=== PATIENT | male | born 1945 | race Caucasian/White ===

== ENCOUNTER 2017-04-23 08:27 | Observation (INO) | payer MEDICARE ==
[2017-04-23] MEDS ORDERED: Diltiazem IV* 5 MG/ML 5 ML VIAL (for loading dose/IV Push) (25 MG) IV PUSH ONE (08:38)
[2017-04-23] MEDS ORDERED: NS 0.9% 1000 ML* 1,000 ML IV ONE ×2 (08:38→09:45)
[2017-04-23 08:57] LABS: ABS Basophils 0.1 10^3/ul (0-0.2); ABS Eosinophils 0 10^3/ul (0-0.6); ABS Lymphocytes 1.6 10^3/ul (1.0-4.8); ABS Monocytes 0.5 10^3/ul (0-0.8); ABS Neutrophils 6.5 10^3/ul (1.5-7.7); ABS Nucleated RBC 0 10^3/ul; Eosinophil % 0.5 % (0-6); Hematocrit 48 % (42-52); Hemoglobin 16.1 g/dl (14.0-18.0); Lymphocyte % 18.5 % (25-47); Mean Corpuscular HGB Conc 34 g/dl (31-36); Mean Corpuscular Hemoglobin 30 pg (27-31); Mean Corpuscular Volume 88 fL (80-94); Mean Platelet Volume 9 um3 (7.4-10.4); Nucleated Red Blood Cells % 0; Platelet Count 244 10^3/ul (150-450); Red Blood Count 5.38 10^6/ul (4.0-5.4); Red Cell Distribution Width 13 % (10.5-15); White Blood Count 8.7 10^3/ul (3.5-10.8)
--- NOTE | 2017-04-23 09:04 | RAD ---
Indication: Arrhythmia. Atrial fibrillation. Comparison: No relevant prior exams available on the [facility] PACS for comparison. Technique: Upright AP 0850 hours Report: Upper normal heart size accounting for portable AP technique. Unremarkable central pulmonary vasculature and mediastinal contours. Minimal prominence of the interstitial markings. Negative for pleural effusion or pneumothorax. IMPRESSION: No acute cardiopulmonary process evident.
[2017-04-23 09:09] LABS: EGFR Non-African American 68.3 (>60)
[2017-04-23] MEDS ORDERED: Potassium Chlor TAB* 20 MEQ TAB.ER PO ONE (09:19)
[2017-04-23 09:22] LABS: INR 0.87 (0.77-1.02)
[2017-04-23] MEDS ORDERED: Diltiazem DRIP* 100 MG/100 ML ADDV.BAG IVPB ONE (10:02)
[2017-04-23] MEDS ORDERED: Metoprolol Tartrate IV* 1 MG/ML 5 ML VIAL IV ONE ×2 (11:15→11:40)
[2017-04-23] MEDS ORDERED: Ondansetron INJ* 2 MG/ML VIAL IV PRN (11:16)
[2017-04-23] MEDS ORDERED: NS 0.9% 1000 ML* 1,000 ML IV SCH (11:30)
[2017-04-23] MEDS ORDERED: Enoxaparin(*) 80 MG/0.8 ML SYR SUBCUT SCH (12:00)
[2017-04-23] MEDS ORDERED: Diltiazem IV VIAL* 125 MG in D5W 100 ML BAG* 100 ML IVPB ONE (12:00)
[2017-04-23 12:43] VITALS: BP 104/70
[2017-04-23] MEDS ORDERED: Midazolam* 1 MG/ML 10 ML VIAL (10 MG) ONE (15:20)
[2017-04-23] MEDS ORDERED: Naloxone* 0.4 MG/ML 1 ML VIAL ONE (15:20)
[2017-04-23] MEDS ORDERED: fentaNYL* 50 MCG/ML 2 ML VIAL (100 MCG VIAL) ONE (15:20)
[2017-04-23] MEDS ORDERED: Flumazenil* 0.1 MG/ML 5 ML MDV ONE (15:20)
--- NOTE | 2017-04-23 17:23 | ED ---
Teddy Maria Angela, scribed for Lon Iqbal MD on 04/23/17 at 0852 . Palpitations / Dysrhythmia - HPI Summary HPI Summary: This pt is a 71 y/o male presenting to [facility] s/p syncopal episode this morning. Pt reports he was getting out of bed when he fainted. Pt notes he was in atrial fibrillation. He states he has atrial fibrillation 2-3 times a year and usually converts back to sinus within 4 hours without cardioversion. Pt is followed up by Dr. Hager. He has echocardiograms routinely done (every 3 days), his last one was 5 days ago (on 04/18/17). Pt notes his last echo looked ok. He reports currently feeling dizzy, lightheaded, and mildly SOB. Pt denies headache , chest pain. Pt is currently on baby ASA. - History of Current Complaint Chief Complaint: EDSyncope Time Seen by Provider: 04/23/17 08:37 Hx Obtained From: Patient Onset/Duration: Lasting Hours, Still Present Severity Currently: Moderate Character: Irregular Aggravating: Nothing Alleviating: Nothing Associated Signs & Symptoms: Lightheadedness, Dizzy, Shortness of Breath - mildly - Allergy/Home Medications Allergies/Adverse Reactions: Allergies Allergy/AdvReac Type Severity Reaction Status Date / Time No Known Allergies Allergy Verified 04/23/17 09:03 Home Medications: Home Medications Ascorbic Acid TAB* [Vitamin C TAB*] 500 mg PO DAILY 04/23/17 [History Confirmed 04/23/17] Aspirin EC Low Dose* [Ecotrin EC Low Dose 81 MG*] 81 mg PO DAILY 04/23/17 [ History Confirmed 04/23/17] Metoprolol Succinate XL TAB* [Toprol XL TAB*] 50 mg PO DAILY 04/23/17 [History Confirmed 04/23/17] Multivitamins/Minerals TAB* [Theragran/minerals TAB*] 1 tab PO DAILY 04/23/17 [ History Confirmed 04/23/17] [place]-3 Fatty Acids (Nf) [Fish Oil (NF)] 1,000 mg PO DAILY 04/23/17 [History Confirmed 04/23/17] PMH/Surg Hx/FS Hx/Imm Hx Endocrine/Hematology History: Denies: Hx Diabetes Cardiovascular History: Reports: Hx Atrial Fibrillation Infectious Disease History: No Infectious Disease History: Denies: Traveled Outside the [place] in Last 30 Days - Family History Known Family History: Positive: Other - Colon Ca. Father: malignant polyp. - Social History Alcohol Use: None Substance Use Type: Reports: None Smoking Status (MU): Former Smoker Review of Systems Negative: Fever, Chills Positive: Palpitations. Negative: Chest Pain Positive: Shortness Of Breath Neurological: Other - lightheadedness, dizziness Negative: Headache All Other Systems Reviewed And Are Negative: Yes Physical Exam - Summary Physical Exam Summary: VITAL SIGNS: Reviewed. GENERAL: Patient is a pale and ill looking male who is lying comfortable in the stretcher. Patient is not in any acute respiratory distress. HEAD AND FACE: No signs of trauma. No ecchymosis, hematomas or skull depressions. No sinus tenderness. EYES: PERRLA, EOMI x 2, No injected conjunctiva, no nystagmus. EARS: Hearing grossly intact. Ear canals and tympanic membranes are within normal limits. MOUTH: Oropharynx within normal limits. NECK: Supple, trachea is midline, no adenopathy, no JVD, no carotid bruit, no c- spine tenderness, neck with full ROM. CHEST: Symmetric, no tenderness at palpation LUNGS: Clear to auscultation bilaterally. No wheezing or crackles. CVS: Irregular rate and rhythm, that ranges from 130-150 bpm. S1 and S2 present , no murmurs or gallops appreciated. ABDOMEN: Soft, non-tender. No signs of distention. No rebound no guarding, and no masses palpated. Bowel sounds are normal. EXTREMITIES: FROM in all major joints, no edema, no cyanosis or clubbing. NEURO: Alert and oriented x 3. No acute neurological deficits. Speech is normal and follows commands. SKIN: Dry and warm Triage Information Reviewed: Yes Vital Signs On Initial Exam: Initial Vitals Temp Pulse Resp BP Pulse Ox 97 F 142 16 126/79 99 04/23/17 08:34 04/23/17 08:34 04/23/17 08:34 04/23/17 08:34 04/23/17 08:34 Vital Signs Reviewed: Yes Diagnostics - Vital Signs Vital Signs Temp Pulse Resp BP Pulse Ox 04/23/17 08:34 97 F 142 16 126/79 99 - Laboratory Lab Results: Lab Results 01/22/18 01/22/18 01/22/18 Range/Units 08:42 08:42 08:42 WBC (3.5-10.8) 10^3/ul RBC (4.0-5.4) 10^6/ul Hgb (14.0-18.0) g/dl Hct (42-52) % MCV (80-94) fL MCH (27-31) pg MCHC (31-36) g/dl RDW (10.5-15) % Plt Count (150-450) 10^3/ul MPV (7.4-10.4) um3 Neut % (Auto) (38-83) % Lymph % (Auto) (25-47) % Barton % (Auto) (1-9) % Eos % (Auto) (0-6) % Baso % (Auto) (0-2) % Absolute Neuts (auto) (1.5-7.7) 10^3/ul Absolute Lymphs (auto) (1.0-4.8) 10^3/ul Absolute Monos (auto) (0-0.8) 10^3/ul Absolute Eos (auto) (0-0.6) 10^3/ul Absolute Basos (auto) (0-0.2) 10^3/ul Absolute Nucleated RBC 10^3/ul Nucleated RBC % INR (Anticoag Therapy) 0.87 (0.77-1.02) APTT 31.2 (26.0-36.3) seconds Sodium 138 (133-145) mmol/L Potassium 3.4 L (3.5-5.0) mmol/L Chloride 102 (101-111) mmol/L Carbon Dioxide 25 (22-32) mmol/L Anion Gap 11 (2-11) mmol/L BUN 22 (6-24) mg/dL Creatinine 1.07 (0.67-1.17) mg/dL Est GFR ( Amer) 87.9 (>60) Est GFR (Non-Af Amer) 68.3 (>60) BUN/Creatinine Ratio 20.6 H (8-20) Glucose 145 H (70-100) mg/dL Calcium 9.2 (8.6-10.3) mg/dL Magnesium 2.0 (1.9-2.7) mg/dL Total Bilirubin 0.90 (0.2-1.0) mg/dL AST 19 (13-39) U/L ALT 17 (7-52) U/L Alkaline Phosphatase 73 (34-104) U/L Total Creatine Kinase 65 (10-223) U/L CK-MB (CK-2) 1.9 (0.6-6.3) ng/mL Troponin I 0.00 (<0.04) ng/mL B-Natriuretic Peptide 28 ( - 100) pg/mL Total Protein 6.7 (6.4-8.9) g/dL Albumin 4.3 (3.2-5.2) g/dL Globulin 2.4 (2-4) g/dL Albumin/Globulin Ratio 1.8 (1-3) TSH 1.15 (0.34-5.60) mcIU/mL Thyroxine (T4) 9.60 (6.09-12.23) mcg/mL 04/23/17 Range/Units 08:42 WBC 8.7 (3.5-10.8) 10^3/ul RBC 5.38 (4.0-5.4) 10^6/ul Hgb 16.1 (14.0-18.0) g/dl Hct 48 (42-52) % MCV 88 (80-94) fL MCH 30 (27-31) pg MCHC 34 (31-36) g/dl RDW 13 (10.5-15) % Plt Count 244 (150-450) 10^3/ul MPV 9 (7.4-10.4) um3 Neut % (Auto) 74.4 (38-83) % Lymph % (Auto) 18.5 L (25-47) % Barton % (Auto) 5.8 (1-9) % Eos % (Auto) 0.5 (0-6) % Baso % (Auto) 0.8 (0-2) % Absolute Neuts (auto) 6.5 (1.5-7.7) 10^3/ul Absolute Lymphs (auto) 1.6 (1.0-4.8) 10^3/ul Absolute Monos (auto) 0.5 (0-0.8) 10^3/ul Absolute Eos (auto) 0 (0-0.6) 10^3/ul Absolute Basos (auto) 0.1 (0-0.2) 10^3/ul Absolute Nucleated RBC 0 10^3/ul Nucleated RBC % 0 INR (Anticoag Therapy) (0.77-1.02) APTT (26.0-36.3) seconds Sodium (133-145) mmol/L Potassium (3.5-5.0) mmol/L Chloride (101-111) mmol/L Carbon Dioxide (22-32) mmol/L Anion Gap (2-11) mmol/L BUN (6-24) mg/dL Creatinine (0.67-1.17) mg/dL Est GFR ( Amer) (>60) Est GFR (Non-Af Amer) (>60) BUN/Creatinine Ratio (8-20) Glucose (70-100) mg/dL Calcium (8.6-10.3) mg/dL Magnesium (1.9-2.7) mg/dL Total Bilirubin (0.2-1.0) mg/dL AST (13-39) U/L ALT (7-52) U/L Alkaline Phosphatase (34-104) U/L Total Creatine Kinase (10-223) U/L CK-MB (CK-2) (0.6-6.3) ng/mL Troponin I (<0.04) ng/mL B-Natriuretic Peptide ( - 100) pg/mL Total Protein (6.4-8.9) g/dL Albumin (3.2-5.2) g/dL Globulin (2-4) g/dL Albumin/Globulin Ratio (1-3) TSH (0.34-5.60) mcIU/mL Thyroxine (T4) (6.09-12.23) mcg/mL Result Diagrams: 04/23/17 08:42 04/23/17 08:42 Lab Statement: Any lab studies that have been ordered have been reviewed, and results considered in the medical decision making process. - Radiology Chest XR Xray Interpretation: No Acute Changes - IMPRESSION: No acute cardiopulmonary process evident. Dr. Iqbal has reviewed this radiology report. Radiology Interpretation Completed By: Radiologist - EKG 9004 Cardiac Rate: Tachycardia EKG Rhythm: Atrial Fibrillation - at 146 bpm EKG Interpretation: ST depression in leads II, aVF, V4-V6. Course/Dx - Course Course Of Treatment: This pt is a 71 y/o male presenting to [facility] s/p syncopal episode this morning. Pt reports he was getting out of bed when he fainted. Pt notes he was in atrial fibrillation. He states he has atrial fibrillation 2-3 times a year and usually converts back to sinus within 4 hours without cardioversion. Pt is followed up by Dr. Hager. He has echocardiograms routinely done (every 3 days), his last one was 5 days ago (on 04/18/17). Pt notes his last echo looked ok. He reports currently feeling dizzy, lightheaded, and mildly SOB. Pt denies headache, chest pain. Pt is currently on baby ASA. Test results without any acute abnormalities except for potassium of 3.4. EKG shows the pt has atrial fibrillation with RVR, for which the pt was placed on cardizem bolus and drip. The heart rate is controlled between 90 and 100. At this point, I discussed the pts case with Dr. Meyer, hospitalist, who accepted the pt for admission. Pt is hemodynamically stable, alert and oriented x3. - Diagnoses Differential Diagnosis/HQI/PQRI: Positive: Paroxymal SVT, V-Tach Provider Diagnoses: Atrial fibrillation with RVR - Physician Notifications Discussed Care Of Patient With: Federico Meyer Time Discussed With Above Provider: 10:05 Instructed by Provider To: Other - I discussed pt care with Dr. Meyer, hospitalist, who has agreed to admit the pt. - Critical Care Time Critical Care Time: 75-104 min Discharge - Discharge Plan Condition: Stable Disposition: ADMITTED TO [facility] The documentation as recorded by the Teddy del toro Angela accurately reflects the service I personally performed and the decisions made by me, Lon Iqbal MD.
--- NOTE | 2017-04-23 20:13 | HP ---
CC: Dr. Early * HISTORY AND PHYSICAL: DATE OF ADMISSION: 04/23/17 PRIMARY CARE PROVIDER: Dr. Early. PROJECT INTERNSHIP: Dr. Hager. CHIEF COMPLAINT: Syncope. HISTORY OF PRESENT ILLNESS: Mr. Toribio is a 71-year-old male who has a history of neurocardiogenic syncope, atrial fibrillation, and obstructive sleep apnea who presents to the emergency room after having syncopal episode on the morning of admission. The patient states that he was getting up from bed. He states he then passed out. When he came to, he felt very wiped out. He felt diaphoretic and then he went into atrial fibrillation. The patient states that this is a common occurrence for him happening 2 to 3 times a year. The patient did relate to me that he saw Dr. Hager just this past Sunday to review an echocardiogram that was done on the Sunday prior. Reportedly, this was all normal. The patient states that he feels exactly the same as he always does after passing out, though perhaps symptoms are minimally worse. The patient did vomit 3 to 4 times this morning. He denies any recent illnesses. He denies any recent cold symptoms. He has no chest pain. He does continue to feel lightheaded. He states he feels like he needs to have a large bowel movement, which is very common after he has a passing out episode. The patient , however, does not want to get up at this point due to feeling lightheaded. The patient typically takes metoprolol XL on a daily basis. However, he has not had his metoprolol yet today. Additionally, he has not taken his aspirin today. PAST MEDICAL HISTORY: 1. Atrial fibrillation - paroxysmal. 2. Obstructive sleep apnea for which he uses a sleep shirt. 3. Neurocardiogenic syncope. PAST SURGICAL HISTORY: Right thumb surgery. MEDICATIONS: 1. [place]-3 fatty acid 1000 mg p.o. daily. 2. Multivitamin 1 tab p.o. daily. 3. Ascorbic acid 500 mg p.o. daily. 4. Metoprolol XL 50 mg p.o. daily. 5. Aspirin 81 mg p.o. daily. ALLERGIES: No known drug allergies. FAMILY HISTORY: Mom is living. She is 93 and healthy. Dad in his 80s. It sounds he had peripheral arterial disease. SOCIAL HISTORY: The patient is a former smoker stating he quit when he was a child. He denies any alcohol use. 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 He is not . He has 1 daughter, her name is Kelli and she is his healthcare proxy. REVIEW OF SYSTEMS: A complete 11-system review of systems is obtained. Pertinent positives and negatives are as per HPI and in addition, the patient does complain of crampy abdominal pain, stating he feels as if he needs to have a bowel movement and he has had some mild nausea. PHYSICAL EXAMINATION GENERAL: The patient is a well-developed elderly male, lying in the stretcher with a cloth over his face, looking mildly ill, but in no acute distress. VITAL SIGNS: Blood pressure 98/62, pulse 127, respirations 14, temp 97, O2 sat 96% on room air. HEENT: Pupils are equal, they are round. Extraocular muscles are intact. Oropharynx is clear. Oral mucosa is moist. There is no submandibular, cervical , or supraclavicular adenopathy. Thyroid is not enlarged. No thyroid nodules are noted. PULMONARY: Lungs are clear to auscultation bilaterally. CARDIAC: Normal S1 and S2. Heart rate is irregularly irregular and tachycardic. There is no lower extremity edema. ABDOMEN: Bowel sounds are present. Abdomen is soft, nontender, nondistended. MUSCULOSKELETAL: There is no cyanosis or clubbing of the digits. There is full active range of motion of all 4 extremities. SKIN: Warm and dry. There are no rashes. NEURO: Cranial nerves II through XII are grossly intact. Sensation is intact to light touch throughout. Strength is 5/5 and symmetric to both upper and lower extremities bilaterally. PSYCH: The patient is alert. He is oriented x3. Affect appears appropriate. LABORATORY DATA/DIAGNOSTIC STUDIES: WBC 8.7, hemoglobin 16.1, hematocrit 48, platelets 244,000. INR 0.87. Sodium 138, potassium 3.4, chloride 102, CO2 of 25, BUN 22, creatinine 1.07, glucose 145. Calcium 9.2. Magnesium 2.0. Bilirubin 0.9, AST 19, ALT 17, alk phos 73. CPK 65, CK-MB 1.9. Troponin 0. BNP 28. Albumin 4.3. TSH 1.15. EKG reveals atrial fibrillation with rapid ventricular response. Chest x-ray reveals no acute cardiopulmonary process. ASSESSMENT AND PLAN: Mr. Toribio is a 71-year-old male who has a history of paroxysmal atrial fibrillation, neurocardiogenic syncope, and obstructive sleep apnea who presents to the emergency room with complaints of syncopal episode and atrial fibrillation. 1. Syncope. The patient states that this will happen intermittently to him where he gets up in the morning and has a vagal response and passes out. The patient states had he not gone into the atrial fibrillation, he likely would not have presented to the emergency room as he felt almost identical to how he usually feels. He recently had an echocardiogram done with Dr. Hager that revealed normal ejection fraction and no significant valvular abnormalities. A copy of this echocardiogram is in the paper chart. I do not believe he needs another echocardiogram; however, he will be monitored on telemetry. 2. Atrial fibrillation. The patient states that frequently after he passes out , he will go into atrial fibrillation. Typically, he breaks after 3 to 4 hours of being in atrial fibrillation. The patient believes he passed out at approximately 7 a.m. and shortly thereafter went into atrial fibrillation. His heart rate has been in the 130s to 140s in the emergency room; however, he did not have his metoprolol today like he usually does. As the patient's blood pressure is on the soft side after receiving 15 mg of diltiazem in the emergency room, I will try 5 mg of IV metoprolol now to see if this slows his heart rate down or breaks him into sinus rhythm. If the patient fails to improve over the course of the next 30 to 60 minutes, I will consult Cardiology for possible cardioversion. The patient will be started on Lovenox therapeutically dosed while awaiting a decision about cardioversion. Additionally, the patient's MARGO-VASc score is 1 for his age. The patient for now will be continued on aspirin. Dr. Hager has recommended the patient going on a full dose anticoagulant; however, he is yet to decide this. We can continue to have this discussion here in the hospital. The patient did receive 40 mEq of potassium in the emergency room for his mild hypokalemia. 3. Obstructive sleep apnea. The patient utilizes a sleep shirt. I do see where he has been referred to Dr. Campo for further evaluation of his sleep apnea. I will perform a nocturnal desaturation study to evaluate for nocturnal hypoxia, which perhaps is leading to the atrial fibrillation. 4. DVT prophylaxis. According to the Adult Thrombosis Prophylaxis Risk Factor Assessment Guide, the patient had a total risk factor score of 2, making him moderate risk. He is going to be on full dose Lovenox for his atrial fibrillation and this will act as his DVT prophylaxis. 5. Code status is full. Again, the patient indicates that his daughter, Kelli, is his healthcare proxy. TIME SPENT: Sixty five minutes were spent admitting this patient. [id number]/[facility] #: [id number] LEANDRA
--- NOTE | 2017-04-23 23:07 | CONS ---
CC: Dr. Hager * CARDIOLOGY CONSULTATION REPORT: DATE OF CONSULTATION: 04/23/17 INDICATIONS FOR CONSULTATION: Atrial flutter. HISTORY OF PRESENT ILLNESS: The patient is a 71-year-old gentleman with a history of paroxysmal atrial fibrillation/atrial flutter. The patient had just seen Dr. Hager last Sunday, April 20, at that time he was having his typical brief episodes of atrial fibrillation. He also has a history of neurocardiogenic syncope. The patient states he was fine over the weekend. No problems yesterday, doing all usual activities yesterday. This morning he got up and immediately he felt unwell. He said these are his usual symptoms before he gets his neuro- cardiogenic syncope. The patient went to sit down and did have a brief passing out episode. When he awoke he noted that he was in atrial fibrillation. The patient states that it was a more vigorous episode of atrial fibrillation, he felt slightly nauseous with it and felt extremely weak. At that time he called his neighbor who came over and brought him to the emergency room. On arrival to the emergency room, he was in atrial flutter with rapid ventricular response and mild hypotension. PAST MEDICAL HISTORY: Significant for paroxysmal atrial fibrillation. PAST SURGICAL HISTORY: None. ALLERGIES: No known drug allergies. OUTPATIENT MEDICATIONS: 1. Fish oil tablets 1000 mg a day. 2. Multivitamin a day. 3. Vitamin C 500 mg a day. 4. Metoprolol succinate 50 mg once a day. 5. Aspirin 81 mg a day. 6. He is not on anticoagulation because of his low MARGO score. SOCIAL HISTORY: He lives by himself. He denies any tobacco or alcohol use. The patient does work. He currently does not have a primary care physician. He does not get any regular exercise. PHYSICAL EXAMINATION: On physical exam, height is 5 feet 8 inches, weight is 169 pounds. Temperature 98.2, heart rate 132, blood pressure 99/60, respiratory rate 15, oxygen saturation 98% on room air. Sclerae anicteric. Oropharynx pink. No erythema. Carotids are 2+ without bruits. JVD is normal. Thyroid is normal. Cardiac Exam: S1, S2 without any murmurs, rubs or gallops. Lungs: Clear to auscultation bilaterally. There is no dullness to percussion. Abdomen: Soft, nontender, nondistended with normoactive bowel sounds. Extremities: Show no edema. He has 2+ pulses through-out. The patient is awake and alert, and oriented. He moves all 4 extremities equally. DIAGNOSTIC DATA/LABORATORY DATA: CBC within normal limits. Chemistry is within normal limits. First trip of troponins are negative at 0 and 0.01. TSH is normal. EKG demonstrates atrial fibrillation with a rapid ventricular response. IMPRESSION: This is a 71-year-old gentleman with a history of paroxysmal atrial fibrillation, atrial flutter. He was admitted to the hospital with atrial flutter. For now my recommendation is to have the patient undergo cardioversion, the risks and benefits of this were described in great detail and the patient is willing to proceed. The patient does not need a transesophageal echocardiogram as his symptoms started this morning. The patient will follow up with Dr. Hager as an outpatient for further treatment of his atrial fibrillation, atrial flutter. [id number]/[facility] #: [id number] MTDD
--- NOTE | 2017-04-24 01:53 | CARD ---
CARDIOVERSION NOTE: DATE OF PROCEDURE: 04/23/17 - ROOM #441 PROCEDURE: Cardioversion. INDICATION: Atrial flutter. The patient is a 71-year-old gentleman with a history of paroxysmal atrial fibrillation and flutter, who is admitted to the hospital with aflutter. The patient's symptoms started this morning. He was feeling poorly. In the atrial fibrillation, his blood pressure was slightly low. Recommendation was to undergo cardioversion. The patient did not need a transesophageal echocardiogram as he has been in atrial fibrillation for less than 24 hours. DESCRIPTION OF PROCEDURE: The patient was in a fasting state. Informed consent had been obtained prior to the procedure. All labs were reviewed. The patient was given 4 mg of Versed and 50 mcg of fentanyl for conscious sedation. The patient was cardioverted with a 100 joules of synchronized biphasic energy. The patient converted from atrial flutter to normal sinus rhythm. The patient tolerated the procedure well with no complications. The patient will follow up with Dr. Hager in the near future. The patient will be discharged on metoprolol succinate 50 mg a day and Eliquis 5 mg b.i.d. [id number]/[facility] #: [id number] [facility]
[2017-04-24] MEDS ORDERED: Multivitamins/Minerals TAB PO SCH (09:00)
[2017-04-24] MEDS ORDERED: Aspirin EC Low Dose* 81 MG TAB.EC PO SCH (09:00)
[2017-04-24] MEDS ORDERED: Metoprolol Succinate XL TAB* 50 MG PO SCH (09:00)
--- NOTE | 2017-04-24 09:42 | DS ---
CC: Dr. Hager; Dr. Cain DATE OF ADMISSION: 04/23/2017. DATE OF DISCHARGE: 04/23/2017. PRIMARY CARE PHYSICIAN: Dr. Cain. HOSPITAL COURSE: Mr. Toribio is a 71-year-old male whom I admitted under observation status earlier o n 04/23/2017 after he sustained a syncopal episode at home and subsequently went into atrial fibrilla tion. This is unfortunately a common occurrence for the patient. He states that the syncopal episod e and how he felt afterward are very similar to how he has always felt. The atrial fibrillation pers isted and he felt lousy with that and therefore presented to the emergency room for evaluation. The patient received a Diltiazem push as well as Metoprolol IV times two doses, but because of persistent hypotension the decision was made to obtain a Cardiology consultation. The patient was seen by Dr. Alex who cardioverted the patient successfully to normal sinus rhythm. The patient at this point is felt to be stable for discharge home per Dr. Alex. He did have a bump in his troponin up to 0.04 w hich I suspect is related to persistent atrial fibrillation. The patient has been started on Eliquis 5 mg p.o. twice daily and will continue on this. He is to follow-up with Dr. Hager next week. Th e patient will hold his aspirin while on the Eliquis. He will also continue on his Metoprolol XL 50 mg daily. The patient is now stable and ready for discharge home. FOLLOW-UP CONCERNS: The patient is being discharged home today, 04/23/2017. The patient is to follow-up with Dr. Cain in the next four to [address] Hager next w rampart. ACTIVITY LEVEL: As tolerated. DIET: Regular. CONDITION ON DISCHARGE: Stable. Twenty minutes were spent discharging this patient. [id number]/[facility] #: [id number]
== END 2017-04-23 18:58 | disposition home or self-care (01) ==
LOC: ED 08:27 → MEDTELE 11:13
PROVIDERS: ADMIT Hospitalist; ATTEND Hospitalist
DX: I48.91 Unspecified atrial fibrillation (principal); R55 Syncope and collapse; R42 Dizziness and giddiness; Z87.891 Personal history of nicotine dependence; R06.02 Shortness of breath; R00.2 Palpitations
CPT/HCPCS: 36415; 71045; 80053; 82550; 82553; 83735; 83880; 84436; 84443; 84484; 85025; 85610; 85730; 92960; 93005; 96374; 96375; 99156; 99284; A9270-GY; G0378; J1650; J2250; J2310; J3010; J3490

== ENCOUNTER 2018-04-25 06:47 | Observation (INO) | payer MEDICARE ==
[2018-04-25] MEDS ORDERED: ceFAZolin 1 GM* X ONE DOSE (AddVan) IVPB ×2 (08:00)
[2018-04-25] MEDS ORDERED: Lidocaine 1% INJ* 10 MG/ML 30 ML SDV ONE (08:33)
[2018-04-25] MEDS ORDERED: fentaNYL* 50 MCG/ML 2 ML VIAL (100 MCG VIAL) ONE (08:33)
[2018-04-25] MEDS ORDERED: Midazolam* 1 MG/ML 5 ML VIAL (5 MG) ONE ×2 (08:34→09:22)
[2018-04-25] MEDS ORDERED: Naloxone* 0.4 MG/ML 1 ML VIAL ONE (08:34)
[2018-04-25] MEDS ORDERED: Iohexol 300* (CONTRAST) 10 ML SDV ONE (08:35)
[2018-04-25] MEDS ORDERED: Flumazenil* 0.1 MG/ML 5 ML MDV ONE (08:35)
[2018-04-25 08:40] LABS: Hematocrit 46 % (42-52); Hemoglobin 15.4 g/dl (14.0-18.0); Mean Corpuscular HGB Conc 34 g/dl (31-36); Mean Corpuscular Hemoglobin 30 pg (27-31); Mean Corpuscular Volume 89 fL (80-94); Mean Platelet Volume 9.2 fL (7.4-10.4); Platelet Count 209 10^3/ul (150-450); Red Blood Count 5.17 10^6/ul (4.00-5.40); Red Cell Distribution Width 13 % (10.5-15); White Blood Count 5.5 10^3/ul (3.5-10.8)
[2018-04-25 08:51] LABS: Activated Partial Thrombo Time 32.4 seconds (26.0-36.3); INR 0.92 (0.77-1.02)
[2018-04-25 08:56] LABS: BUN/Creatinine Ratio 16.7 (8-20); Calcium 9.1 mg/dL (8.6-10.3); EGFR African American 87.1 (>60); Potassium 4.1 mmol/L (3.5-5.0)
[2018-04-25] MEDS ORDERED: Acetaminophen TAB* 325 MG PO PRN (10:17)
[2018-04-25] MEDS: ceFAZolin 1 GM VIAL(*) 1 GM in NS 0.9% 50 ML* 50 ML IVPB SCH (17:36)
[2018-04-26] MEDS: ceFAZolin 1 GM VIAL(*) 1 GM in NS 0.9% 50 ML* 50 ML IVPB SCH ×2 (00:55→09:02)
[2018-04-26] MEDS ORDERED: Metoprolol Succinate XL TAB* 50 MG PO SCH (09:00)
[2018-04-26 09:21] VITALS: BP 124/74
--- NOTE | 2018-04-27 12:59 | OP ---
DATE OF OPERATION: 04/25/18 - ROOM #452 DATE OF : 47 SURGEON: Lorri Hager MD. ANESTHESIA: MAC. PRE-OP DIAGNOSIS: Syncope. POST-OP DIAGNOSIS: Syncope. OPERATIVE PROCEDURE: Dual chamber pacemaker implantation. ESTIMATED BLOOD LOSS: Less than 1 cc. INDICATIONS: The patient is right-handed. Indications, risks, and benefits of the procedure were discussed with the patient who is present with his family and he is amenable to proceeding. DESCRIPTION OF PROCEDURE: The left subclavian fossa was prepped and draped in the usual sterile fashion and a time-out procedure was called. Following this, the patient received a total of 7 mg of Versed and 50 mcg of fentanyl for sedation as well as 1% lidocaine for local anesthesia. Following the anesthesia, a 10 cc of radiopaque dye was injected in the left upper extremity outlining the left axillary and left subclavian vein. Following this, using a 10-blade knife, a 2.5-cm incision in the left subclavian fossa and using Bovie, blunt dissection was extended to the level of the pectoralis muscle. Additional lidocaine was infused inferiorly, and using blunt dissection , a small pocket was fashioned. Using the modified Seldinger technique, the left subclavian vein was cannulated and a guidewire inserted using fluoroscopic guidance. This was repeated with a second guidewire. Using an introducer technique, right ventricular lead was guided into the right ventricular apex and actively fixed in place, pacing and sensing thresholds were checked and found to be good. Using the second guidewire and introducer technique and fluoroscopic guidance, the atrial lead was guided into the right atrial appendage. It was actively fixed and placed and pacing and sensing thresholds were checked and found to be good. The leads were then sutured through the pocket using 0 silk suture. High output threshold testing had been checked and no diaphragmatic pacing appreciated. The pocket was copiously irrigated. The leads were attached to the generator. The generator was placed in the pocket and the pocket was closed using 2 layers of absorbable suture, 2-0 followed by 4-0, followed by zay and external dressings. FINDINGS: The system is a Medtronic MRI compatible pacemaker system. The device is a [employer] [place] XTDR MRI, serial #[id number] and he was programmed in dual chamber model, rate of 60 beats a minute. The atrial lead is a Medtronic model 5076-52, serial #[id number]. The ventricular lead is a Medtronic model 5076-58, serial #[id number]. P-waves sensed at 6.6 millivolts with an atrial lead impedance of 713 ohms and an atrial pacing threshold of 0.5 volts at 0.5 milliseconds. The R-waves were sensed at 5.5 millivolts with a ventricular lead impedance of 1419 ohms and a ventricular pacing threshold 1 volt at 0.5 milliseconds. The patient was hemodynamically stable throughout the procedure. There was no complications and the patient was stable on transfer to the floor. CONCLUSION: Successful dual chamber pacemaker implantation without complication. [id number] #: [id number] LEANDRA
== END 2018-04-26 10:46 | disposition home or self-care (01) ==
LOC: CHICATH 06:47 → MEDTELE 10:18
PROVIDERS: ADMIT Specialist; ATTEND Specialist
DX: R55 Syncope and collapse (principal); I48.0 Paroxysmal atrial fibrillation; I49.5 Sick sinus syndrome; R42 Dizziness and giddiness; H81.10 Benign paroxysmal vertigo, unspecified ear; Z87.891 Personal history of nicotine dependence
CPT/HCPCS: 33208; 36415; 71045; 71046; 80048; 85027; 85610; 85730; 93005; 99156; 99157; A9270-GY; C1785; C1898; G0378; J0690; J2250; J2310; J3010